=== PATIENT | female | born 1990 | race Caucasian/White ===

== ENCOUNTER 2018-09-29 09:29 | Inpatient (IN) | payer MEDICAID ==
[2018-09-29] MEDS ORDERED: MISOPROSTOL 200 MCG TAB PR (12:30)
[2018-09-29] MEDS ORDERED: CARBOPROST 250 MCG INJ IM (12:30)
[2018-09-29] MEDS ORDERED: METHYLERGONOVINE 0.2 MG INJ IM (12:30)
[2018-09-29] MEDS ORDERED: LIDOCAINE 1% (MPF) 30 ML INJ INJ (12:30)
[2018-09-29] MEDS ORDERED: OXYTOCIN 30 UNITS/LR 500 ML IV ×3 (12:30)
[2018-09-29 12:33] LABS: ADD MAN DIFF? NO
[2018-09-29 12:37] LABS: BASOPHIL # 0.1 10^3/ul (0.0-0.1); BASOPHILS % 0.6 % (0.0-2.0); EOSINOPHILS # 0.1 10^3/ul (0.0-0.5); EOSINOPHILS % 0.9 % (0.0-7.0); HEMATOCRIT 35.4 % (37.0-47.0); HEMOGLOBIN 11.4 g/dl (12.0-16.0); LYMPHOCYTES # 1.9 10^3/ul (0.8-2.9); LYMPHOCYTES % 15.4 % (15.0-51.0); MEAN CORPUSCULAR HGB CONC 32.2 g/dl (32.0-37.0); MEAN CORPUSCULAR VOLUME 90.1 fl (82.0-101.0); MEAN PLATELET VOLUME 11.8 fl (7.4-10.4); MONOCYTE # 0.8 10^3/ul (0.3-0.9); MONOCYTES % 6.3 % (0.0-11.0); NEUTROPHIL # 8.6 10^3/ul (1.6-7.5); PLATELET COUNT 179 10^3/UL (140-415); RED BLOOD COUNT 3.93 10^6/ul (4.20-5.40); RED CELL DISTRIBUTION WIDTH 14.2 % (11.5-14.5)
[2018-09-29 12:40] LABS: INR 0.85; PROTIME 11.7 Sec (11.9-14.9); PT RATIO 0.9
[2018-09-29 12:41] LABS: PARTIAL THROMBOPLASTIN TIME 24.1 Sec (23.0-35.0)
[2018-09-29] MEDS: LACTATED RINGER'S 1,000 ML IV ×2 (13:06→16:12)
[2018-09-29] MEDS: MISOPROSTOL 50 MCG CAPSULE PO ×2 (13:07→20:39)
[2018-09-29] MEDS: AMPICILLIN 2 GM/NS (PMX) 100 ML IVPB (16:28)
[2018-09-29] MEDS: AMPICILLIN 1 GM/NS (PMX) 50 ML IVPB (20:39)
[2018-09-29 22:04] LABS: RAPID PLASMA REAGIN NONREACTIVE (NR)
[2018-09-30] MEDS: LACTATED RINGER'S 1,000 ML IV ×3 (00:07→11:42)
[2018-09-30] MEDS: AMPICILLIN 1 GM/NS (PMX) 50 ML IVPB ×6 (00:45→21:14)
[2018-09-30] MEDS: MISOPROSTOL 50 MCG CAPSULE PO ×4 (00:45→13:57)
[2018-09-30] MEDS: OXYTOCIN 30 UNITS/LR 500 ML IV (19:51)
[2018-10-01] MEDS: AMPICILLIN 1 GM/NS (PMX) 50 ML IVPB ×5 (01:00→13:00)
[2018-10-01] MEDS: ACETAMINOPHEN 325 MG TAB PO (01:33)
[2018-10-01] MEDS: LACTATED RINGER'S 1,000 ML IV ×2 (04:38→12:04)
[2018-10-01] MEDS ORDERED: CEFAZOLIN 2 GM/50 ML (PMX) 50 ML IVPB (10:00)
[2018-10-01] MEDS ORDERED: MISOPROSTOL 200 MCG TAB PR ×2 (10:00→14:30)
[2018-10-01] MEDS ORDERED: OXYTOCIN 30 UNITS/LR 500 ML IV ×2 (10:00→14:30)
[2018-10-01] MEDS ORDERED: CARBOPROST 250 MCG INJ IM ×2 (10:00→14:30)
[2018-10-01] MEDS ORDERED: METHYLERGONOVINE 0.2 MG INJ IM ×2 (10:00→14:30)
[2018-10-01] MEDS ORDERED: ONDANSETRON 4 MG INJ (12:11)
[2018-10-01] MEDS ORDERED: morphine SULFATE/PF (10 MG/10 ML) INJ (12:11)
[2018-10-01] MEDS ORDERED: METOCLOPRAMIDE 10 MG INJ (12:20)
[2018-10-01] MEDS ORDERED: LACTATED RINGER'S 1,000 ML IV (12:42)
[2018-10-01] MEDS ORDERED: MIDAZOLAM 1 MG/ML 2 ML INJ (12:42)
[2018-10-01] MEDS ORDERED: AZITHROMYCIN 500MG/NS (PMX) 250 ML (12:42)
[2018-10-01] MEDS ORDERED: OXYTOCIN 10 UNIT INJ (12:47)
[2018-10-01] MEDS ORDERED: MEPERIDINE 25 MG INJ IV (13:00)
[2018-10-01] MEDS ORDERED: NALBUPHINE HCL (10 MG/1 ML) INJ IV (13:00)
[2018-10-01] MEDS ORDERED: LORAZEPAM 2 MG INJ IV (13:00)
[2018-10-01] MEDS ORDERED: MIDAZOLAM 1 MG/ML 2 ML INJ IV (13:00)
[2018-10-01] MEDS ORDERED: NALOXONE (0.4 MG/ML) INJ IV (13:00)
[2018-10-01] MEDS ORDERED: ZOLPIDEM 5 MG TAB PO (13:00)
[2018-10-01] MEDS ORDERED: DIPHENHYDRAMINE 50 MG INJ IV ×2 (13:00)
[2018-10-01] MEDS ORDERED: ONDANSETRON 4 MG INJ IV ×2 (13:00→14:30)
[2018-10-01] MEDS ORDERED: HYDROmorphONE 0.5 MG/0.5 ML SYG IV ×2 (13:00)
[2018-10-01] MEDS ORDERED: CEFAZOLIN 1 GM INJ (13:25)
[2018-10-01] MEDS ORDERED: OXYTOCIN 30 UNITS/LR 1,000 ML IV (13:36)
[2018-10-01] MEDS ORDERED: OXYCODONE/ACETAMINOPHEN (5/325) TAB PO (14:30)
[2018-10-01] MEDS ORDERED: IBUPROFEN 600 MG TAB PO (14:30)
[2018-10-01] MEDS ORDERED: ACETAMINOPHEN 325 MG TAB PO (14:30)
[2018-10-01] MEDS ORDERED: BISACODYL 10 MG SUPP PR (14:30)
[2018-10-01] MEDS ORDERED: CEFAZOLIN 1 GM/50 ML (PMX) 50 ML IVPB (14:30)
[2018-10-01] MEDS: OXYTOCIN 30 UNITS/LR 500 ML IV ×2 (15:15→16:56)
[2018-10-01] MEDS: KETOROLAC 30 MG INJ IV (15:23)
[2018-10-01] MEDS: LANOLIN HPA 1 PKT TOP (16:52)
[2018-10-01] MEDS: CEFAZOLIN 1 GM/50 ML (PMX) 50 ML IVPB (20:28)
[2018-10-02] MEDS: KETOROLAC 30 MG INJ IV ×2 (00:41→08:22)
[2018-10-02] MEDS: LACTATED RINGER'S 1,000 ML IV (03:35)
[2018-10-02] MEDS: CEFAZOLIN 1 GM/50 ML (PMX) 50 ML IVPB ×2 (04:43→12:47)
[2018-10-02 06:35] LABS: ADD MAN DIFF? NO
[2018-10-02 06:43] LABS: WHITE BLOOD COUNT 13.2 10^3/ul (4.8-10.8)
[2018-10-02 06:43] LABS: BASOPHILS % 0.3 % (0.0-2.0); EOSINOPHILS # 0.1 10^3/ul (0.0-0.5); EOSINOPHILS % 0.7 % (0.0-7.0); HEMATOCRIT 32.1 % (37.0-47.0); HEMOGLOBIN 10.1 g/dl (12.0-16.0); LYMPHOCYTES # 1.5 10^3/ul (0.8-2.9); MEAN CORPUSCULAR HEMOGLOBIN 28.9 pg (29.0-33.0); MEAN CORPUSCULAR HGB CONC 31.5 g/dl (32.0-37.0); MEAN CORPUSCULAR VOLUME 91.7 fl (82.0-101.0); MEAN PLATELET VOLUME 11.5 fl (7.4-10.4); MONOCYTE # 0.8 10^3/ul (0.3-0.9); NEUTROPHIL # 10.7 10^3/ul (1.6-7.5); NEUTROPHILS % 80.4 % (39.0-77.0); PLATELET COUNT 152 10^3/UL (140-415); RED CELL DISTRIBUTION WIDTH 14.4 % (11.5-14.5)
[2018-10-02 07:18] LABS: ALANINE AMINOTRANSFERASE 18 IU/L (13-69); ALBUMIN 2.6 g/dl (3.3-4.9); ALBUMIN/GLOBULIN RATIO 0.92; ALKALINE PHOSPHATASE 115 IU/L (42-121); ANION GAP 4 (5-13); ASPARTATE AMINO TRANSFERASE 22 IU/L (15-46); BILIRUBIN,INDIRECT 0.5 mg/dl (0-1.1); BILIRUBIN,TOTAL 0.5 mg/dl (0.2-1.3); BLOOD UREA NITROGEN 6 mg/dl (7-20); CALCIUM 7.9 mg/dl (8.4-10.2); CARBON DIOXIDE 26 mmol/L (21-31); CHLORIDE 105 mmol/L (97-110); CREATININE 0.61 mg/dl (0.44-1.00); Estimated GFR > 60 mL/min (>60); GLUCOSE 81 mg/dl (70-220); POTASSIUM 4.5 mmol/L (3.5-5.1); SODIUM 135 mmol/L (135-144); TOTAL PROTEIN 5.4 g/dl (6.1-8.1)
[2018-10-02] MEDS: SENNA/DOCUSATE NA (8.6MG/50MG) TAB PO ×2 (08:22→22:55)
[2018-10-02] MEDS: LANOLIN HPA 1 PKT TOP (16:44)
[2018-10-02] MEDS: IBUPROFEN 600 MG TAB PO (18:00)
[2018-10-03] MEDS: IBUPROFEN 600 MG TAB PO ×3 (00:54→23:48)
[2018-10-03] MEDS: OXYCODONE/ACETAMINOPHEN (5/325) TAB PO ×3 (04:05→14:25)
[2018-10-03] MEDS: SENNA/DOCUSATE NA (8.6MG/50MG) TAB PO (08:32)
[2018-10-04] MEDS: IBUPROFEN 600 MG TAB PO ×2 (06:34→13:01)
[2018-10-04] MEDS: MAGNESIUM HYDROXIDE 30ML CUP PO (11:02)
[2018-10-04] MEDS: SENNA/DOCUSATE NA (8.6MG/50MG) TAB PO (11:02)
== END 2018-10-04 16:26 | disposition home or self-care (01) | DRG 768 ==
LOC: L-D 09:29 → PP1 10-01 15:46 → L-D 10:57
PROVIDERS: Specialist
PROC: 10E0XZZ Delivery of Products of Conception, External Approach (ICD-10-PCS; principal; 2018-10-01)
PROC: 0DQR0ZZ Repair Anal Sphincter, Open Approach (ICD-10-PCS; 2018-10-01)
DX: O61.0 Failed medical induction of labor (principal); Z37.0 Single live birth; O70.20 Third degree perineal laceration during delivery, unspecified; Z3A.39 39 weeks gestation of pregnancy
CPT/HCPCS: 76815; 80053; 85025; 85610; 85730; 86592; 86850; 86870; 86900; 86901; 99464